=== PATIENT | female | born 1965 | race Caucasian/White ===

== ENCOUNTER 2025-01-02 13:12 | Emergency (ER) | payer OTHER ==
[~2025-01-02] VITALS: Ht 154.9 cm; Wt 75.0 kg
[2025-01-02 13:23] VITALS: BP 147/77; PULSE 76; RESP 18; TEMP 36.7; O2SAT 95; O2SAT 98
[2025-01-02] MEDS ORDERED: BACI3.5O19 EACHEYE (14:25)
== END 2025-01-02 14:37 | disposition home or self-care (01) ==
LOC: ER 13:12
DX: H10.89 Other conjunctivitis (principal); E78.00 Pure hypercholesterolemia, unspecified; I10 Essential (primary) hypertension; Z90.49 Acquired absence of other specified parts of digestive tract
CPT/HCPCS: 99283